=== PATIENT | female | born 1995 | race African-American/Black ===

== ENCOUNTER 2023-07-12 16:56 | Emergency (ER) | payer MEDICAID ==
[~2023-07-12] VITALS: Ht 165.1 cm; Wt 75.0 kg
[2023-07-12 17:07] VITALS: TEMP 98.7; O2SAT 99
[2023-07-12] MEDS ORDERED: TRAMADOL 50MG TABLET PO PRN (17:30)
[2023-07-12] MEDS ORDERED: IBUPROFEN 600MG TABLET PO NR (17:30)
[2023-07-12 17:46] VITALS: BP 118/67; PULSE 84; RESP 16
[2023-07-12] MEDS ORDERED: IBUP-2029 MT (21:18)
[2023-07-12] MEDS ORDERED: METH-653 MT (21:18)
== END 2023-07-12 21:29 | disposition home or self-care (01) ==
LOC: ER 16:56
DX: M54.2 Cervicalgia (principal); V49.9XXA Car occupant (driver) (passenger) injured in unspecified traffic accident, initial encounter; Y93.9 Activity, unspecified; Y92.89 Other specified places as the place of occurrence of the external cause; Y99.8 Other external cause status
CPT/HCPCS: 99284